=== PATIENT | male | born 1965 | race African-American/Black ===

== ENCOUNTER 2018-07-14 10:25 | Emergency (ER) | payer MEDICAID ==
[~2018-07-14] VITALS: Ht 190.5 cm; Wt 106.8 kg
[2018-07-14 10:36] VITALS: BP 124/78
[2018-07-14] MEDS ORDERED: GENTAMICIN SULFATE 0.3% OPHTHALMIC SOLUTION 5 ML OD ONE (11:00)
== END 2018-07-14 11:15 | disposition home or self-care (01) ==
LOC: EMS 10:26
DX: H11.31 Conjunctival hemorrhage, right eye (principal)